=== PATIENT | male | born 1970 | race Two or more races ===

== ENCOUNTER 2020-10-02 17:54 | Inpatient (IN) | payer MEDICAID, OTHER, SELFPAY ==
[~2020-10-02] VITALS: Ht 170.2 cm; Wt 101.0 kg
--- NOTE | 2020-10-02 18:02 | NUR ---
PT BIB EMS TRANSFER FROM [facility] FOR NEURO CONSULT. PT FOUND DOWN AT WORK AT [employer] WITH SONOROUS RESPIRATIONS.LOST BLADDER CONTROL. HX OF ETOH WITHDRAWL SEIZURE, HEAVY DRINKER. PT DOES NOT REMEMBER EVENT. PT ON CARD MONITOR. RECIEVED NS W K 900 ML. PT SAMI SPEAKING. EKG DONE. DENIES CP, SOB AT THIS TIME.
--- NOTE | 2020-10-02 18:10 | NUR ---
SEIZURE PRECAUTIONS IN PLACE. PADS ON RAILS GIVEN ATIVAN IN ROUTE BY EMS
[2020-10-02] MEDS ORDERED: LORazepam 2 MG/ML, 1ML ONE (18:38)
[2020-10-02] MEDS ORDERED: PLEASE ENTER ALLERGIES MC SCH (18:38)
--- NOTE | 2020-10-02 18:52 | NUR ---
REPORT FROM Iona RN, ASSUME CARE OF PT AT THIS TIME. LAB IN TO DRAW. PT SLEEPING BUT AROUSABLE, ANSWERING QUESTIONS.
[2020-10-02 19:00] LABS: BASOPHILS % (AUTO) 1 % (0-1); EOSINOPHILS % (AUTO) 0 % (1-7); LYMPHOCYTES % (AUTO) 6 % (22-44); MEAN CORPUSCULAR HEMOGLOBIN 32.7 pg (27.5-34.5); MEAN CORPUSCULAR HGB CONC 35.2 g/dL (33.2-36.2); MEAN PLATELET VOLUME 9.5 fL (7.4-10.4); MONOCYTES % (AUTO) 8 % (2-9); NEUTROPHILS % (AUTO) 85 % (42-75); PLATELET COUNT 155 x10^3/uL (130-400); RED BLOOD COUNT 4.82 x10^6/uL (4.38-5.82)
[2020-10-02] MEDS ORDERED: LORazepam 2 MG/ML, 1ML IVPush ONE (19:00)
[2020-10-02 19:06] LABS: MD NO
[2020-10-02 19:09] LABS: ALANINE AMINOTRANSFERASE 60 U/L (12-78); ANION GAP 8 mmol/L (5-15); CALCIUM 8.7 mg/dL (8.5-10.1); CHLORIDE 103 mmol/L (98-107); CREATININE 1.22 mg/dL (0.7-1.3)
[2020-10-02 19:11] LABS: ALKALINE PHOSPHATASE 193 U/L (45-117); BILIRUBIN,TOTAL 2.5 mg/dL (0.2-1.0); TOTAL PROTEIN 7.6 g/dL (6.4-8.2)
[2020-10-02] MEDS ORDERED: MAGNESIUM SULFATE PMX 2GM/50ML 50 ML ONE (19:18)
[2020-10-02] MEDS ORDERED: LABETALOL 5MG/ML, 20ML ONE (19:18)
[2020-10-02] MEDS ORDERED: MAGNESIUM SULFATE PMX 2GM/50ML 50 ML IV ONE (19:30)
[2020-10-02] MEDS ORDERED: LABETALOL 5MG/ML, 20ML IVPush ONE (19:30)
[2020-10-02] MEDS ORDERED: ASPI81TA45 PO (20:30)
[2020-10-02] MEDS ORDERED: AMLO-211 PO (20:30)
[2020-10-02] MEDS ORDERED: CARV-39 PO (20:30)
[2020-10-02] MEDS ORDERED: LOSA25TA25 PO (20:30)
[2020-10-02] MEDS ORDERED: FURO20TA3 PO (20:30)
[2020-10-02] MEDS ORDERED: LOVA40TA2 PO (20:30)
--- NOTE | 2020-10-02 20:48 | NUR ---
PT SLEEPING, NAD. NO SEIZURE ACTIVITY. VSS/UPDATED IN COMPUTER.
--- NOTE | 2020-10-02 21:00 | NUR ---
[facility] IN TO SEE PT.
[2020-10-02] MEDS ORDERED: LORazepam 2 MG/ML, 1ML IV PRN ×5 (21:30)
[2020-10-02] MEDS ORDERED: THIAMINE 200 MG in DEXTROSE 5% 50 ML IVPB ONE (21:30)
[2020-10-02] MEDS ORDERED: ONDANSETRON 2MG/ML, 2ML IV PRN (21:30)
[2020-10-02] MEDS ORDERED: LORazepam 0.5MG TABLET PO PRN (21:30)
[2020-10-02] MEDS ORDERED: POTASSIUM CHLORIDE 20 MEQ TAB.ER.PRT PO ONE (21:30)
[2020-10-02] MEDS ORDERED: LORazepam 1MG TABLET PO PRN ×4 (21:30)
[2020-10-02 22:00] LABS: INTERNATIONAL NORMALIZED RATIO 1.11 (0.93-1.1); PROTHROMBIN TIME 11.9 Seconds (9.6-11.5)
[2020-10-02 22:22] VITALS: BP 194/130
[2020-10-02] MEDS: LABETALOL 5MG/ML, 20ML IVPush PRN (22:25)
[2020-10-02] MEDS: DIAZEPAM 10 MG TABLET PO SCH (22:34)
[2020-10-03] VITALS (20 sets, daily range): BP systolic 148–198; BP diastolic 100–128
[2020-10-03] MEDS: CARVEDILOL 25 MG TABLET PO SCH ×3 (00:47→20:24)
[2020-10-03] MEDS: LABETALOL 5MG/ML, 20ML IVPush PRN ×3 (01:49→15:16)
[2020-10-03 03:15] LABS: AMPHETAMINE SCREEN, URINE Negative (Negative); BARBITURATE SCREEN, URINE Positive (Negative); BENZODIAZEPINE SCREEN, URINE Positive (Negative); CANNABINOID SCREEN, URINE Negative (Negative); COCAINE SCREEN, URINE Negative (Negative); METHADONE SCREEN, URINE Negative (Negative); OPIATE SCREEN, URINE Negative (Negative)
[2020-10-03] MEDS: DIAZEPAM 10 MG TABLET PO SCH ×3 (03:43→15:16)
[2020-10-03 05:27] LABS: BASOPHILS % (AUTO) 0 % (0-1); EOSINOPHILS % (AUTO) 1 % (1-7); LYMPHOCYTES % (AUTO) 7 % (22-44); MEAN CORPUSCULAR HEMOGLOBIN 32.6 pg (27.5-34.5); MEAN CORPUSCULAR HGB CONC 34.3 g/dL (33.2-36.2); MEAN PLATELET VOLUME 10.1 fL (7.4-10.4); MONOCYTES % (AUTO) 8 % (2-9); NEUTROPHILS % (AUTO) 83 % (42-75); PLATELET COUNT 136 x10^3/uL (130-400); RED BLOOD COUNT 4.56 x10^6/uL (4.38-5.82); RED CELL DISTRIBUTION WIDTH 15.2 % (9.4-14.8)
[2020-10-03 05:36] LABS: MD NO
[2020-10-03 05:38] LABS: ALANINE AMINOTRANSFERASE 51 U/L (12-78); ALBUMIN 2.7 g/dL (3.4-5.0); ANION GAP 7 mmol/L (5-15); CALCIUM 8.7 mg/dL (8.5-10.1); CHLORIDE 106 mmol/L (98-107); CREATININE 1.11 mg/dL (0.7-1.3)
[2020-10-03 05:41] LABS: ALKALINE PHOSPHATASE 174 U/L (45-117); BILIRUBIN,TOTAL 2.2 mg/dL (0.2-1.0); TOTAL PROTEIN 6.9 g/dL (6.4-8.2)
[2020-10-03] MEDS: MULTIVITAMIN 1 TABLET PO SCH (08:50)
[2020-10-03] MEDS: ASPIRIN 81 MG TABLET EC PO SCH (08:50)
[2020-10-03] MEDS: AMLODIPINE 10 MG TAB PO SCH (08:50)
[2020-10-03] MEDS: FUROSEMIDE 20 MG TABLET PO SCH (08:51)
[2020-10-03] MEDS: LOSARTAN 25MG TABLET PO SCH (08:51)
[2020-10-03] MEDS ORDERED: OMNIPAQUE 350 MG/ML, 100ML BOTTLE ONE (14:25)
--- NOTE | 2020-10-03 16:50 | NUR ---
FUAD PAEZ - Fall Risk Medications present and NOT receiving anticoagulants. Signed: 10/03/20 at 1650 by Cy CATHERINE
[2020-10-03] MEDS: DIAZEPAM 5 MG TABLET PO SCH (20:24)
[2020-10-04 01:53] VITALS: BP 166/109
[2020-10-04] MEDS ORDERED: ACETAMINOPHEN 325 MG TABLET ONE (02:37)
[2020-10-04] MEDS: ACETAMINOPHEN 325 MG TABLET PO PRN ×3 (02:44→17:21)
[2020-10-04] MEDS: DIAZEPAM 5 MG TABLET PO SCH ×4 (04:59→21:45)
[2020-10-04 05:27] LABS: ALANINE AMINOTRANSFERASE 45 U/L (12-78); ALBUMIN 2.7 g/dL (3.4-5.0); ANION GAP 8 mmol/L (5-15); CALCIUM 8.7 mg/dL (8.5-10.1); CHLORIDE 103 mmol/L (98-107); CREATININE 1.13 mg/dL (0.7-1.3)
[2020-10-04 05:29] LABS: BASOPHILS % (AUTO) 0 % (0-1); EOSINOPHILS % (AUTO) 1 % (1-7); LYMPHOCYTES % (AUTO) 8 % (22-44); MEAN CORPUSCULAR HEMOGLOBIN 33.2 pg (27.5-34.5); MEAN PLATELET VOLUME 10.6 fL (7.4-10.4); MONOCYTES % (AUTO) 10 % (2-9); NEUTROPHILS % (AUTO) 81 % (42-75); PLATELET COUNT 134 x10^3/uL (130-400); RED BLOOD COUNT 4.71 x10^6/uL (4.38-5.82); RED CELL DISTRIBUTION WIDTH 15.6 % (9.4-14.8)
[2020-10-04 05:30] LABS: ALKALINE PHOSPHATASE 162 U/L (45-117); BILIRUBIN,TOTAL 2.2 mg/dL (0.2-1.0); TOTAL PROTEIN 7.3 g/dL (6.4-8.2)
[2020-10-04 05:55] LABS: MD NO
[2020-10-04 06:53] VITALS: BP 135/96
[2020-10-04] MEDS ORDERED: POTASSIUM CHLORIDE 20 MEQ TAB.ER.PRT PO ONE (08:00)
[2020-10-04] MEDS: MULTIVITAMIN 1 TABLET PO SCH (08:50)
[2020-10-04] MEDS: FUROSEMIDE 20 MG TABLET PO SCH (08:50)
[2020-10-04] MEDS: AMLODIPINE 10 MG TAB PO SCH (08:51)
[2020-10-04] MEDS: THIAMINE 100MG TABLET PO SCH (08:51)
[2020-10-04] MEDS: LOSARTAN 25MG TABLET PO SCH (08:51)
[2020-10-04] MEDS: CARVEDILOL 25 MG TABLET PO SCH ×2 (08:51→21:45)
[2020-10-04] MEDS: FOLIC ACID 1 MG TABLET PO SCH (08:51)
[2020-10-04] MEDS: ASPIRIN 81 MG TABLET EC PO SCH (08:51)
[2020-10-04] MEDS ORDERED: MAGNESIUM SULFATE PMX 4GM/100M 100 ML IVPB ONE (12:00)
[2020-10-04 13:00] VITALS: BP 123/86
[2020-10-04 19:07] VITALS: BP 114/79
[2020-10-04] MEDS: CEFTRIAXONE 1,000 MG in DEXTROSE 5% 50 ML IVPB SCH (19:49)
[2020-10-05 01:48] VITALS: BP 137/89
[2020-10-05 05:33] LABS: ANION GAP 11 mmol/L (5-15); CALCIUM 9.5 mg/dL (8.5-10.1); CHLORIDE 100 mmol/L (98-107)
[2020-10-05 05:34] LABS: CREATININE 1.41 mg/dL (0.7-1.3)
[2020-10-05 05:35] LABS: BASOPHILS % (AUTO) 0 % (0-1); EOSINOPHILS % (AUTO) 1 % (1-7); LYMPHOCYTES % (AUTO) 8 % (22-44); MEAN CORPUSCULAR HEMOGLOBIN 33.2 pg (27.5-34.5); MEAN CORPUSCULAR HGB CONC 34.7 g/dL (33.2-36.2); MEAN PLATELET VOLUME 10.9 fL (7.4-10.4); MONOCYTES % (AUTO) 13 % (2-9); NEUTROPHILS % (AUTO) 77 % (42-75); PLATELET COUNT 140 x10^3/uL (130-400); RED BLOOD COUNT 4.62 x10^6/uL (4.38-5.82)
[2020-10-05 06:06] LABS: MD SCAN
[2020-10-05] MEDS: DIAZEPAM 5 MG TABLET PO SCH (07:20)
[2020-10-05] MEDS ORDERED: POTASSIUM CHLORIDE 20 MEQ TAB.ER.PRT PO ONE (07:30)
[2020-10-05 07:52] VITALS: BP 145/91
[2020-10-05] MEDS: ACETAMINOPHEN 325 MG TABLET PO PRN ×2 (08:45→19:11)
[2020-10-05] MEDS: AMLODIPINE 10 MG TAB PO SCH (08:45)
[2020-10-05] MEDS: FUROSEMIDE 20 MG TABLET PO SCH (08:46)
[2020-10-05] MEDS: THIAMINE 100MG TABLET PO SCH (08:47)
[2020-10-05] MEDS: MULTIVITAMIN 1 TABLET PO SCH (08:47)
[2020-10-05] MEDS: LOSARTAN 25MG TABLET PO SCH (08:47)
[2020-10-05] MEDS: ASPIRIN 81 MG TABLET EC PO SCH (08:47)
[2020-10-05] MEDS: CARVEDILOL 25 MG TABLET PO SCH ×2 (08:48→20:44)
[2020-10-05] MEDS: FOLIC ACID 1 MG TABLET PO SCH (08:48)
[2020-10-05 10:08] LABS: MICROSCOPIC AUTO
[2020-10-05] MEDS: HYDROcodone/APAP 5/325 TABLET PO PRN ×2 (12:15→16:36)
[2020-10-05 16:37] VITALS: BP 105/71
[2020-10-05 19:07] VITALS: BP 117/77
[2020-10-05] MEDS: CEFTRIAXONE 1,000 MG in DEXTROSE 5% 50 ML IVPB SCH (19:53)
[2020-10-06 00:27] VITALS: BP 113/73
[2020-10-06 05:12] LABS: ALBUMIN 2.5 g/dL (3.4-5.0); ANION GAP 10 mmol/L (5-15); CALCIUM 8.5 mg/dL (8.5-10.1); CHLORIDE 99 mmol/L (98-107)
[2020-10-06 05:16] LABS: ALANINE AMINOTRANSFERASE 30 U/L (12-78); ALKALINE PHOSPHATASE 139 U/L (45-117); BILIRUBIN,TOTAL 1.7 mg/dL (0.2-1.0); CREATININE 1.85 mg/dL (0.7-1.3); TOTAL PROTEIN 7.2 g/dL (6.4-8.2)
[2020-10-06 07:22] VITALS: BP 135/87
[2020-10-06] MEDS ORDERED: POTASSIUM CHLORIDE 20 MEQ TAB.ER.PRT PO ONE (07:30)
[2020-10-06] MEDS: ASPIRIN 81 MG TABLET EC PO SCH (08:51)
[2020-10-06] MEDS: AMLODIPINE 10 MG TAB PO SCH (08:54)
[2020-10-06] MEDS: HYDROcodone/APAP 5/325 TABLET PO PRN (08:54)
[2020-10-06] MEDS: THIAMINE 100MG TABLET PO SCH (08:54)
[2020-10-06] MEDS: FOLIC ACID 1 MG TABLET PO SCH (08:54)
[2020-10-06] MEDS: GABAPENTIN 100 MG CAPSULE PO SCH ×3 (08:55→20:34)
[2020-10-06] MEDS: NYSTATIN 500,000 UNITS/5 ML UDC PO SCH ×4 (08:55→20:34)
[2020-10-06] MEDS: CARVEDILOL 25 MG TABLET PO SCH ×2 (08:55→20:34)
[2020-10-06] MEDS: MULTIVITAMIN 1 TABLET PO SCH (08:56)
[2020-10-06] MEDS: LOSARTAN 25MG TABLET PO SCH (08:56)
[2020-10-06 12:19] VITALS: BP 108/72
[2020-10-06] MEDS ORDERED: GADOTERATE 10 MMOL/20ML SYR ONE (17:43)
[2020-10-06 18:25] VITALS: BP 116/76
[2020-10-06] MEDS: CEFTRIAXONE 1,000 MG in DEXTROSE 5% 50 ML IVPB SCH (19:49)
[2020-10-07 00:30] VITALS: BP 114/75
[2020-10-07] MEDS: NYSTATIN 500,000 UNITS/5 ML UDC PO SCH ×4 (05:30→21:43)
[2020-10-07 06:08] LABS: ALBUMIN 2.4 g/dL (3.4-5.0); ANION GAP 9 mmol/L (5-15); CALCIUM 8.4 mg/dL (8.5-10.1); CHLORIDE 100 mmol/L (98-107)
[2020-10-07 06:12] LABS: ALANINE AMINOTRANSFERASE 27 U/L (12-78); ALKALINE PHOSPHATASE 125 U/L (45-117); BILIRUBIN,TOTAL 1.6 mg/dL (0.2-1.0); CREATININE 1.36 mg/dL (0.7-1.3)
[2020-10-07 06:27] VITALS: BP 125/81
[2020-10-07] MEDS: AMLODIPINE 10 MG TAB PO SCH (08:45)
[2020-10-07] MEDS: ACETAMINOPHEN 325 MG TABLET PO PRN (08:45)
[2020-10-07] MEDS: LOSARTAN 25MG TABLET PO SCH (08:46)
[2020-10-07] MEDS: GABAPENTIN 100 MG CAPSULE PO SCH (08:46)
[2020-10-07] MEDS: THIAMINE 100MG TABLET PO SCH (08:48)
[2020-10-07] MEDS: CARVEDILOL 25 MG TABLET PO SCH ×2 (08:49→21:43)
[2020-10-07] MEDS: ASPIRIN 81 MG TABLET EC PO SCH (08:49)
[2020-10-07] MEDS: MULTIVITAMIN 1 TABLET PO SCH (08:49)
[2020-10-07] MEDS: FOLIC ACID 1 MG TABLET PO SCH (08:49)
[2020-10-07] MEDS ORDERED: ACETAMINOPHEN 325 MG TABLET ONE (09:24)
[2020-10-07] MEDS ORDERED: LIDODERM 5% PATCH TD ONE (09:24)
[2020-10-07] MEDS ORDERED: GABAPENTIN 100 MG CAPSULE ONE (09:24)
[2020-10-07] MEDS: ACETAMINOPHEN 325 MG TABLET PO SCH ×3 (09:33→21:43)
[2020-10-07] MEDS: GABAPENTIN 300 MG CAPSULE PO SCH ×3 (09:33→21:43)
[2020-10-07] MEDS: LIDODERM 5% PATCH TD SCH (09:34)
[2020-10-07] MEDS ORDERED: MAGNESIUM HYDROXIDE 8%, 30ML UDC PO ONE (10:30)
[2020-10-07] MEDS ORDERED: BISACODYL 10 MG SUPP PR PRN (10:30)
[2020-10-07] MEDS: SENNA/DOCUSATE TABLET PO SCH (10:41)
[2020-10-07] MEDS: OXYcodone IR 5MG TABLET PO PRN ×2 (10:42→22:14)
[2020-10-07] MEDS: HEPARIN 5,000 UNITS/ML, 1ML SQ SCH ×2 (11:26→18:17)
[2020-10-07 12:07] VITALS: BP 122/78
[2020-10-07 19:14] VITALS: BP 117/76
[2020-10-08 02:17] VITALS: BP 115/69
[2020-10-08] MEDS: HEPARIN 5,000 UNITS/ML, 1ML SQ SCH ×3 (02:53→18:16)
[2020-10-08] MEDS: NYSTATIN 500,000 UNITS/5 ML UDC PO SCH ×4 (05:09→21:40)
[2020-10-08] MEDS: OXYcodone IR 5MG TABLET PO PRN (05:12)
[2020-10-08 07:03] VITALS: BP 102/74
[2020-10-08] MEDS ORDERED: BISACODYL 10 MG SUPP PR ONE (08:30)
[2020-10-08] MEDS: ACETAMINOPHEN 325 MG TABLET PO SCH ×3 (08:31→21:40)
[2020-10-08] MEDS: LIDODERM 5% PATCH TD SCH (08:32)
[2020-10-08] MEDS: MULTIVITAMIN 1 TABLET PO SCH (08:33)
[2020-10-08] MEDS: FOLIC ACID 1 MG TABLET PO SCH (08:33)
[2020-10-08] MEDS: GABAPENTIN 300 MG CAPSULE PO SCH ×3 (08:33→21:41)
[2020-10-08] MEDS: SENNA/DOCUSATE TABLET PO SCH (08:33)
[2020-10-08] MEDS: THIAMINE 100MG TABLET PO SCH (08:33)
[2020-10-08] MEDS: AMLODIPINE 10 MG TAB PO SCH (08:33)
[2020-10-08] MEDS: ASPIRIN 81 MG TABLET EC PO SCH (08:34)
[2020-10-08] MEDS: CARVEDILOL 25 MG TABLET PO SCH ×2 (08:34→21:40)
[2020-10-08] MEDS: LOSARTAN 25MG TABLET PO SCH (08:34)
[2020-10-08 12:06] VITALS: BP 124/87
[2020-10-08 12:11] LABS: BASOPHILS % (AUTO) 1 % (0-1); EOSINOPHILS % (AUTO) 2 % (1-7); LYMPHOCYTES % (AUTO) 10 % (22-44); MEAN CORPUSCULAR HEMOGLOBIN 32.9 pg (27.5-34.5); MEAN CORPUSCULAR HGB CONC 33.8 g/dL (33.2-36.2); MEAN PLATELET VOLUME 9.9 fL (7.4-10.4); MONOCYTES % (AUTO) 14 % (2-9); NEUTROPHILS % (AUTO) 74 % (42-75); PLATELET COUNT 228 x10^3/uL (130-400); RED CELL DISTRIBUTION WIDTH 15.1 % (9.4-14.8)
[2020-10-08 12:16] LABS: MD NO
[2020-10-08 12:22] LABS: ALANINE AMINOTRANSFERASE 33 U/L (12-78); ALBUMIN 2.4 g/dL (3.4-5.0); ANION GAP 9 mmol/L (5-15); CHLORIDE 99 mmol/L (98-107)
[2020-10-08 12:25] LABS: ALKALINE PHOSPHATASE 135 U/L (45-117); BILIRUBIN,TOTAL 1.2 mg/dL (0.2-1.0); CREATININE 1.73 mg/dL (0.7-1.3); TOTAL PROTEIN 7.6 g/dL (6.4-8.2)
[2020-10-08] MEDS: AMOXICILLIN/CLAV 875-125MG TABLET PO SCH ×2 (13:29→21:41)
[2020-10-08 19:13] VITALS: BP 109/74
[2020-10-08 21:39] VITALS: BP 128/85
[2020-10-09 00:15] VITALS: BP 116/80
[2020-10-09] MEDS: HEPARIN 5,000 UNITS/ML, 1ML SQ SCH ×3 (03:22→18:29)
[2020-10-09] MEDS: NYSTATIN 500,000 UNITS/5 ML UDC PO SCH ×4 (05:45→20:56)
[2020-10-09 05:49] LABS: BASOPHILS % (AUTO) 1 % (0-1); EOSINOPHILS % (AUTO) 2 % (1-7); LYMPHOCYTES % (AUTO) 8 % (22-44); MEAN CORPUSCULAR HEMOGLOBIN 33.3 pg (27.5-34.5); MEAN CORPUSCULAR HGB CONC 33.8 g/dL (33.2-36.2); MONOCYTES % (AUTO) 15 % (2-9); NEUTROPHILS % (AUTO) 75 % (42-75); PLATELET COUNT 226 x10^3/uL (130-400); RED BLOOD COUNT 3.74 x10^6/uL (4.38-5.82); RED CELL DISTRIBUTION WIDTH 14.6 % (9.4-14.8)
[2020-10-09 06:04] LABS: CHLORIDE 101 mmol/L (98-107)
[2020-10-09 06:14] LABS: MD NO
[2020-10-09 06:17] LABS: ALANINE AMINOTRANSFERASE 33 U/L (12-78); ALBUMIN 2.3 g/dL (3.4-5.0); ALKALINE PHOSPHATASE 121 U/L (45-117); ANION GAP 10 mmol/L (5-15); BILIRUBIN,TOTAL 1.3 mg/dL (0.2-1.0); CALCIUM 9.2 mg/dL (8.5-10.1); CREATININE 1.62 mg/dL (0.7-1.3); TOTAL PROTEIN 7.1 g/dL (6.4-8.2)
[2020-10-09 07:03] VITALS: BP 104/66
[2020-10-09] MEDS ORDERED: ACETAMINOPHEN 325 MG TABLET PO PRN (09:00)
[2020-10-09] MEDS: GABAPENTIN 300 MG CAPSULE PO SCH ×3 (09:42→20:57)
[2020-10-09] MEDS: SENNA/DOCUSATE TABLET PO SCH (09:42)
[2020-10-09] MEDS: LIDODERM 5% PATCH TD SCH (09:42)
[2020-10-09] MEDS: ASPIRIN 81 MG TABLET EC PO SCH (09:42)
[2020-10-09] MEDS: MULTIVITAMIN 1 TABLET PO SCH (09:43)
[2020-10-09] MEDS: THIAMINE 100MG TABLET PO SCH (09:43)
[2020-10-09] MEDS: LOSARTAN 25MG TABLET PO SCH (09:43)
[2020-10-09] MEDS: CARVEDILOL 25 MG TABLET PO SCH ×2 (09:43→20:57)
[2020-10-09] MEDS: FOLIC ACID 1 MG TABLET PO SCH (09:43)
[2020-10-09] MEDS: AMOXICILLIN/CLAV 875-125MG TABLET PO SCH ×2 (09:43→20:56)
--- NOTE | 2020-10-09 12:45 | NUR ---
Posted activity sheet and informed patient and nursing staff Addendum: 10/09/20 at 1247 by Keaton Reveles PT Amended: Links added.
[2020-10-09 13:20] VITALS: BP 117/83
[2020-10-09 18:41] VITALS: BP 135/91
[2020-10-10 00:04] VITALS: BP 118/78
[2020-10-10] MEDS: HEPARIN 5,000 UNITS/ML, 1ML SQ SCH ×2 (02:52→11:32)
[2020-10-10] MEDS: NYSTATIN 500,000 UNITS/5 ML UDC PO SCH ×2 (05:47→11:34)
[2020-10-10 05:50] LABS: BASOPHILS % (AUTO) 0 % (0-1); EOSINOPHILS % (AUTO) 0 % (1-7); LYMPHOCYTES % (AUTO) 6 % (22-44); MEAN CORPUSCULAR HEMOGLOBIN 33.3 pg (27.5-34.5); MEAN CORPUSCULAR HGB CONC 34.4 g/dL (33.2-36.2); MEAN PLATELET VOLUME 10.5 fL (7.4-10.4); MONOCYTES % (AUTO) 8 % (2-9); NEUTROPHILS % (AUTO) 85 % (42-75); PLATELET COUNT 265 x10^3/uL (130-400); RED BLOOD COUNT 3.91 x10^6/uL (4.38-5.82); RED CELL DISTRIBUTION WIDTH 14.7 % (9.4-14.8)
[2020-10-10 05:56] LABS: ALBUMIN 2.3 g/dL (3.4-5.0); CHLORIDE 104 mmol/L (98-107)
[2020-10-10 06:01] LABS: MD NO
[2020-10-10 06:02] LABS: ALANINE AMINOTRANSFERASE 39 U/L (12-78); ALKALINE PHOSPHATASE 149 U/L (45-117); ANION GAP 7 mmol/L (5-15); BILIRUBIN,TOTAL 0.8 mg/dL (0.2-1.0); CALCIUM 8.9 mg/dL (8.5-10.1); CREATININE 1.41 mg/dL (0.7-1.3); TOTAL PROTEIN 7.1 g/dL (6.4-8.2)
[2020-10-10 08:28] VITALS: BP 128/86
[2020-10-10] MEDS: ASPIRIN 81 MG TABLET EC PO SCH (09:00)
[2020-10-10] MEDS: CARVEDILOL 25 MG TABLET PO SCH (09:00)
[2020-10-10] MEDS: GABAPENTIN 300 MG CAPSULE PO SCH (09:00)
[2020-10-10] MEDS: FOLIC ACID 1 MG TABLET PO SCH (09:00)
[2020-10-10] MEDS: MULTIVITAMIN 1 TABLET PO SCH (09:00)
[2020-10-10] MEDS: THIAMINE 100MG TABLET PO SCH (09:00)
[2020-10-10] MEDS: SENNA/DOCUSATE TABLET PO SCH (09:00)
[2020-10-10] MEDS: AMOXICILLIN/CLAV 875-125MG TABLET PO SCH (09:00)
[2020-10-10] MEDS: LOSARTAN 25MG TABLET PO SCH (09:01)
[2020-10-10] MEDS: LIDODERM 5% PATCH TD SCH (09:05)
[2020-10-10] MEDS ORDERED: PRED20TA PO (12:05)
[2020-10-10] MEDS ORDERED: FOLI1TAB32 PO (12:05)
[2020-10-10] MEDS ORDERED: GABA300C PO (12:05)
[2020-10-10] MEDS ORDERED: AMOX1TAB12 PO (12:05)
[2020-10-10] MEDS ORDERED: THIA100T67 PO (12:05)
[2020-10-10 14:31] VITALS: BP 135/88
== END 2020-10-10 16:03 | disposition home or self-care (01) | DRG 204 ==
LOC: ED 20:09 → EDIP 21:04 → 4WST 22:09 → 4EST 10-03 22:40 → 3N 10-09 13:30
PROVIDERS: ADMIT Family Medicine; ATTEND Hospitalist
DX: R55 Syncope and collapse (principal); N17.9 Acute kidney failure, unspecified; B37.0 Candidal stomatitis; E11.22 Type 2 diabetes mellitus with diabetic chronic kidney disease; E11.65 Type 2 diabetes mellitus with hyperglycemia; E87.1 Hypo-osmolality and hyponatremia; D72.829 Elevated white blood cell count, unspecified; E78.5 Hyperlipidemia, unspecified; E86.1 Hypovolemia; E87.5 Hyperkalemia; E87.6 Hypokalemia; F10.239 Alcohol dependence with withdrawal, unspecified; G83.84 Todd's paralysis (postepileptic); I13.0 Hypertensive heart and chronic kidney disease with heart failure and stage 1 through stage 4 chronic kidney disease, or unspecified chronic kidney disease; I50.42 Chronic combined systolic (congestive) and diastolic (congestive) heart failure; K74.60 Unspecified cirrhosis of liver; K76.6 Portal hypertension; M10.9 Gout, unspecified; N18.9 Chronic kidney disease, unspecified; Z86.73 Personal history of transient ischemic attack (TIA), and cerebral infarction without residual deficits; Z82.61 Family history of arthritis; Z83.3 Family history of diabetes mellitus; R59.0 Localized enlarged lymph nodes; M79.89 Other specified soft tissue disorders; M25.522 Pain in left elbow
CPT/HCPCS: 36415; 70450; 70487; 76705; 80048; 80053; 80307; 81001; 82140; 82550; 82607; 82962; 83036; 83605; 83735; 84100; 85025; 85610; 87040; 93005; 93306; 96374; 96375; G0378; J0696; J1644; J3411; Q9967; A9575; J2060; J3475; J7512